=== PATIENT | male | born 1980 | race Caucasian/White ===

== ENCOUNTER 2018-06-21 16:33 | Emergency (ER) | payer OTHER, MEDICAID ==
[2018-06-21] MEDS ORDERED: CLINDAMYCIN 150 MG CAP PO ONE (17:02)
--- NOTE | 2018-06-21 17:02 | EDPHY ---
H & P Stated Complaint: mouth/tooth pain Time Seen by Provider: 06/21/18 16:57 HPI/ROS: HPI: This is a 38-year-old male who presents with Chief Complaint: Mouth/tooth pain Location: Top left tooth Quality: Pain Duration: 2 weeks Signs and Symptoms: no fever, no nausea, no vomiting, no diarrhea, no urinary symptoms, no chest pain, no shortness of breath, no wheezing, no cough, no sore throat, no neck stiffness, no joint pain, no swollen glands, no ear pain, no rash, no facial swelling Timing: Worsening Severity: Moderate Context: Patient presents with complaints of 2 weeks pain that is gradually worsening his top left tooth. Patient reports that he is a heavy tobacco user and was seen at [facility] yesterday and advised that he needs almost all of his teeth extracted and veneers placed. He was started on amoxicillin a 1000 mg x1 and 500 mg 3 times a day. Patient reports that he has taken 3 doses. Patient reports that he still has pain in the left upper tooth. He does not want all of his teeth pulled and is looking for 2nd opinion. Modifying Factors: Amoxicillin times 24 hr Comment: ROS: A comprehensive 10 system review of systems is otherwise negative aside from elements mentioned in the history of present illness. MEDICAL/SURGICAL/SOCIAL HISTORY: Medical history: TBI, ulcerative colitis Surgical history: Denies Social history: Heavy smoker. Family history noncontributory. CONSTITUTIONAL: Nontoxic-appearing, talkative middle-aged white male, awake and alert, no obvious distress HEENT: Atraumatic and normocephalic, PERRL, EOMI. Nares patent; no rhinorrhea; no nasal mucosal edema. Tympanic membranes clear. Oropharynx clear, tooth number #11, #12, #13 dark in color; no gingival erythema, fluctuance, swelling. Poor dentition noted throughout. no tonsillar exudate and moist pink mucosa. Able to open mouth 3 finger widths wide. Airway patent. No lymphadenopathy. No meningismus. Cardiovascular: Normal S1/S2, regular rate, regular rhythm, without murmur rub or gallop. PULMONARY/CHEST: Symmetrical and nontender. Clear to auscultation bilaterally. Good air movement. No accessory muscle usage. ABDOMEN: Soft, nondistended, nontender, no rebound, no guarding, no peritoneal signs, no masses or organomegaly. No CVAT. EXTREMITIES: 2/2 pulses, strength 5/5, no deformities, no clubbing, no cyanosis or edema. NEUROLOGICAL: no focal neuro deficits. GCS 15. Speech is clear. SKIN: Warm and dry, no erythema. no rash. Good capillary refill. Source: Patient Exam Limitations: No limitations - Personal History Current Tetanus/Diphtheria Vaccine: Unsure - Medical/Surgical History Hx Asthma: No Hx Chronic Respiratory Disease: No Hx Diabetes: No Hx Cardiac Disease: No Hx Renal Disease: No Hx Cirrhosis: No Hx Alcoholism: No Other PMH: ulcerative colitis, TBI 1996 - Social History Smoking Status: Heavy smoker Constitutional: Initial Vital Signs Temperature (C) 36.6 C 06/21/18 16:40 Heart Rate 89 06/21/18 16:40 Respiratory Rate 18 06/21/18 16:40 Blood Pressure 113/82 H 06/21/18 16:40 O2 Sat (%) 92 06/21/18 16:40 O2 Delivery Mode Room Air Allergies/Adverse Reactions: No Known Allergies Allergy (Unverified 06/21/18 16:45) Home Medications: Medication Instructions Recorded Clindamycin HCl [Clindamycin] 300 mg PO TID #21 cap 06/21/18 Depakote 06/21/18 Risperidone 06/21/18 Zyprexa 06/21/18 Medical Decision Making Procedures: Procedure: Dental block. After verbal informed consent was obtained explaining the risks including but not limited to infection and bleeding a dental block was performed on tooth 11 buccal mucosa. The patient was prepped and draped in the usual sterile fashion. The buccal mucosa was anesthetized using 1.5 mL of 1% lidocaine without epinephrine. Patient tolerated procedure well with complete relief of pain. There were no complications. The procedure was performed by myself. ED Course/Re-evaluation: Vital signs reviewed and stable upon arrival. No systemic signs. Dental block provided with complete pain relief. Given clindamycin 300 mg in the emergency room and prescription for the same Referral to the [facility] Advised to stop smoking. No signs of dental abscess, facial cellulitis, malocclusion, dehydration This patient was seen under the supervision of my secondary supervising physician. I evaluated care for this patient independently. Discussed this patient with Dr. Hay who did not see the patient. Differential Diagnosis: Differential diagnosis includes but is not limited to nerve injury, dental cavity, dental abscess. Departure - Departure Disposition: Home, Routine, Self-Care Clinical Impression: Odontalgia, Tobacco user, Tooth decayed Condition: Good Instructions: Toothache (ED) Additional Instructions: Follow up with a dentist in the next week. Eat a soft diet. Swish and spit with dilute hydrogen peroxide after every meal and at bedtime. Take Tylenol 650 mg every 4 hr and/or ibuprofen 600 mg every 8 hr as needed for pain. Stop taking amoxicillin and start taking clindamycin. Applying ice pack to the side of her face 2 to 3 times a day for approximately 20-30 minutes for the next few days. Take antibiotic as directed until complete. Do not miss any doses. Referrals: [facility] [Outside] - As per Instructions Prescriptions: Clindamycin HCl [Clindamycin] 300 mg PO TID #21 cap
[2018-06-21 17:10] VITALS: BP 116/74
== END 2018-06-21 17:29 | disposition home or self-care (01) ==
PROC: 3E0T3BZ Introduction of Anesthetic Agent into Peripheral Nerves and Plexi, Percutaneous Approach (ICD-10-PCS; principal; 2018-06-21)
DX: K08.89 Other specified disorders of teeth and supporting structures (principal); K02.9 Dental caries, unspecified; F17.200 Nicotine dependence, unspecified, uncomplicated